=== PATIENT | female | born 1950 | race Caucasian/White ===

== ENCOUNTER → 2018-10-15 | Outpatient (CLI) | payer MEDICARE | LOC: CARD 13:55 | PROVIDERS: ATTEND Nurse Practitioner | DX: I08.0 Rheumatic disorders of both mitral and aortic valves (principal); R60.0 Localized edema | CPT/HCPCS: 93306 ==

== ENCOUNTER 2019-07-28 20:07 | Emergency (ER) | payer MEDICARE ==
[~2019-07-28] VITALS: Ht 157.4 cm; Wt 68.6 kg
--- OUTSIDE RECORDS SUMMARY | 2019-07-28 20:15 | XMS REPORT ---
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 Role Phone TOMMY DENG Unavailable PROBLEMS Type Condition ICD9-CM Code [id number] Code Onset Dates Condition S tatus SNOMED Code Problem Hyperlipidemia E78.5 Active 73161 004 Problem Other chronic pain G89.29 Active 8 [id number] ALLERGIES No Known Allergies ENCOUNTERS Encounter Location Date Diagnosis [address], [place] [address] Dec, Elevated glucose R73.09 ; Right foot jodi n M79.671 and Itching L29.[address], [place] [address] Nov, Other chronic pain G89.29 and Pain in le ft shoulder M25.[address], [place] [address] Sep, Elevated glucose R73.[address], [place] [address] Sep, Peripheral edema R60.9 ; Cardiac murmur R01.1 ; Hyperlipidemia E78.5 and Screening for breast cancer Z12.39 [facility] [address] [place] [address] Aug, Lower back pain M54.5 [facility] [id number] [place] [address] May, Hyperlipidemia E78.5 [facility] [address] [place] [address] May, Acute right-sided low back p ain without sciatica M54.5 and UTI symptoms R39.9 [facility] [address] [facility] [place] [address] 11 May, 2018 Adult general medical exam Z00.00 [place] [address] [place] [id number] [place] [phone] 10 May, 2018 [place] [address] [place] [phone] 9 May, Urinary pain R30.9 and Acute cystitis without hematuria N30.00 [place] [address] [place] [phone] 9 Apr, Urinary pain R30.9 [place] [address] [place] [phone] 9 Apr, Urinary pain R30.9 ; Acute cystitis without hematuria N30.00 and Other eczema L30.8 [place] [address] [place] [phone] 9 Mar, [place] [address] [place] [phone] 9 Feb, IMMUNIZATIONS No Known Immunizations SOCIAL HISTORY Never Assessed REASON FOR VISIT Eye c/o, for the last week eyelids have been crusty and really itchy. Thinks she might also have UTI-mild burning/low back pain. BEAR Landrum PLAN OF CARE Activity Details Follow Up prn Reason: VITAL SIGNS Height 62 in 2018-04-13 Weight 162.4 lbs 2018-04-13 Temperature 99.0 degrees Fahrenheit 2018-04-13 Heart Rate 64 bpm 2018-04-13 Respiratory Rate 16 2018-04-13 BMI 29.7 kg/m2 2018-04-13 Blood pressure systolic 138 mmHg 2018-04-13 Blood pressure diastolic 80 mmHg 2018-04-13 MEDICATIONS Medication Instructions Dosage Frequency Start Date End Date Duration S tatus Elocon 0.1 % Externally Once a day 1 application to affected area 2 4h Apr, 14 days Active Nexium 20 MG Orally Once a day 1 capsule 24h Feb, 30 day(s) Active Claritin Feb, Active Amlodipine Besylate 5 MG TAKE 1 TABLET B Y MOUTH ONCE DAILY LAST REFILL UNTIL SEEN 90 Active Benadryl Feb, Active Metoprolol Succinate ER 25 MG Orally Once a day 1.5 tablets 24h Feb, 30 day(s) Not-Taking HydrOXYzine HCl 25 MG Orally every 8 hrs 1 tablet as needed 8h Feb, 30 day(s) Active Fish Oil 1000 MG Orally Once a day 1 capsule 24h Feb, 30 day(s) Active Clobetasol Propionate 0.05 % Externally Twice a day 1 applic ation to affected area 12h Feb, 10 day(s) Active Metoprolol Tartrate 25 MG Orally Twice a day 1 tablet with food 12h Feb, 30 day(s) Active Cipro 250 MG Orally every 12 hrs 1 tablet 12h Apr, 7 days Active RESULTS No Results PROCEDURES Procedure Date Ordered Result Body Site [facility] VISIT ESTABLISHED PATIENT April 13, 2018 URINALYSIS, AUTO, W/O SCOPE April 13, 2018 [facility] April 13, 2018 INSTRUCTIONS MEDICATIONS ADMINISTERED No Known Medications MEDICAL (GENERAL) HISTORY Type Description Date Medical History hypertension Surgical History Breast Biopsy Hospitalization History Child
--- OUTSIDE RECORDS SUMMARY | 2019-07-28 20:15 | XMS REPORT | Continuity of Care Document ---
Author Organization Unknown Address Unknown Phone Unavailable Allergies There is no data. Medications There is no data. Problems Date Dx Coded Attending Type Code Diagnosis Diagnosed By 11/08/2018 MARCIE QUEZADA SR SOLUTIONS CONSULTANT Ot I08.0 RHEUMATIC DISORDERS OF BOTH MITRAL AND A 11/08/2018 MARCIE QUEZADA SR SOLUTIONS CONSULTANT Ot R60.0 LOCALIZED EDEMA 11/15/2018 MARCIE QUEZADA SR SOLUTIONS CONSULTANT Ot I08.0 RHEUMATIC DISORDERS OF BOTH MITRAL AND A 11/15/2018 ADITYA QUEZADAA Aundrea SR SOLUTIONS CONSULTANT Ot R60.0 LOCALIZED [place] Procedures There is no data. Results Test Result Range CULTURE, URINE - 04/13/18 10:28 CULTURE, URINE, ROUTINE SEE NOTE NRG CULTURE, URINE - 05/11/18 08:05 CULTURE, URINE, ROUTINE SEE NOTE NRG LIPID PANEL - 05/17/18 09:42 CHOLESTEROL, TOTAL 293 mg/dL <200 HDL CHOLESTEROL 60 mg/dL >50 TRIGLYCERIDES 130 mg/dL <150 LDL-CHOLESTEROL 205 mg/dL (calc) NRG CHOL/HDLC RATIO 4.9 (calc) <5.0 NON HDL CHOLESTEROL 233 mg/dL (calc) <13 0 CMP - 09/28/18 07:41 GLUCOSE 106 mg/dL 65-99 UREA NITROGEN (BUN) 11 mg/dL 7-25 CREATININE 0.88 mg/dL 0.50-0.99 eGFR NON-AFR. WELSH 67 mL/min/1.73m2 > OR = 60 eGFR 78 mL/min/1.73m2 > OR = 60 BUN/CREATININE RATIO NOT APPLICABLE (calc) 6-22 SODIUM 136 mmol/L 135-146 POTASSIUM 4.1 mmol/L 3.5-5.3 CHLORIDE 101 mmol/L 98-110 CARBON DIOXIDE 27 mmol/L 20-32 CALCIUM 10.0 mg/dL 8.6-10.4 PROTEIN, TOTAL 7.0 g/dL 6.1-8.1 ALBUMIN 4.4 g/dL 3.6-5.1 GLOBULIN 2.6 g/dL (calc) 1.9-3.7 ALBUMIN/GLOBULIN RATIO 1.7 (calc) 1.0-2. 5 BILIRUBIN, TOTAL 0.7 mg/dL 0.2-1.2 ALKALINE PHOSPHATASE 82 U/L 33-130 AST 19 U/L 10-35 ALT 17 U/L 6-29 BNP - 09/28/18 07:41 B TYPE NATRIURETIC PEPTIDE (BNP) 67 pg/mL <100 CULTURE, URINE - 06/16/19 10:30 CULTURE, URINE, ROUTINE SEE NOTE NRG Encounters ACCT No. Visit Date/Time Discharge Status Pt. Type Provider Facility Loc./Unit Complaint [id number] 07/24/2019 17:00:00 07/24/2019 23:59: 59 CLS Outpatient TOMMY DENG [facility] [id number] 06/16/2019 10:10:00 Document Registration [id number] 09/28/2018 07:00:00 Document Registration [id number] 05/17/2018 10:00:00 Document Registration [id number] 05/10/2018 16:00:00 Document Registration [id number] 04/13/2018 10:20:00 Document Registration [id number] 10/15/2018 13:55:00 019 23:59:59 CLS Outpatient MARCIE QUEZADA [facility] TOMY A
[2019-07-28] MEDS ORDERED: NS IV 1000 ML 1,000 ML IV SCH (20:30)
[2019-07-28] MEDS ORDERED: HYDROcodone/APAP 5 MG/325 MG (LORTAB) TAB PO ONE (20:30)
[2019-07-28] MEDS ORDERED: ONDANSETRON 4 MG/2 ML (SDV) Z0FRAN IVP ONE (20:30)
[2019-07-28] MEDS ORDERED: KETOROLAC 30 MG/ML VIAL IVP ONE (20:30)
[2019-07-28 20:37] LABS: BACTERIA,URINE FEW /HPF; BILIRUBIN,URINE NEGATIVE (NEGATIVE); CLARITY,URINE SLIGHTLY CLOUDY; COLOR,URINE YELLOW; GLUCOSE, URINE (UA) NEGATIVE (NEGATIVE); KETONES,URINE NEGATIVE (NEGATIVE); LEUKOCYTE ESTERASE ,URINE 3+ (NEGATIVE); NITRITE,URINE NEGATIVE (NEGATIVE); PH,URINE 6.5 (5-9); PROTEIN,URINE NEGATIVE (NEGATIVE); WBC,URINE >100 /HPF
[2019-07-28 20:38] LABS: HEMATOCRIT 44 % (35-52); MEAN CORPUSCULAR HEMOGLOBIN 30 PG (25-34); MEAN CORPUSCULAR VOLUME 88 FL (80-99); WHITE BLOOD COUNT 9.1 10^3/uL (4.3-11.0)
[2019-07-28 20:39] LABS: BASOPHILS # (AUTO) 0.1 10^3/uL (0.0-0.1); BASOPHILS % (AUTO) 1 % (0-10); EOSINOPHILS # (AUTO) 0.1 10^3/uL (0.0-0.3); EOSINOPHILS % (AUTO) 1 % (0-10); LYMPHOCYTES # (AUTO) 3.1 X 10^3 (1.0-4.0); LYMPHOCYTES % (AUTO) 34 % (12-44); MEAN CORPUSCULAR HGB CONC 34 G/DL (32-36); MEAN PLATELET VOLUME 9.6 FL (7.4-10.4); MONOCYTES # (AUTO) 0.6 X 10^3 (0.0-1.0); MONOCYTES % (AUTO) 6 % (0-12); NEUTROPHILS # (AUTO) 5.2 X 10^3 (1.8-7.8); NEUTROPHILS % (AUTO) 58 % (42-75); PLATELET COUNT 364 10^3/uL (130-400); RED CELL DISTRIBUTION WIDTH 12.8 % (10.0-14.5)
[2019-07-28 20:55] LABS: ALANINE AMINOTRANSFERASE 18 U/L (0-55); ALBUMIN 4.9 GM/DL (3.2-4.5); ALKALINE PHOSPHATASE 106 U/L (40-136); BILIRUBIN,TOTAL 0.4 MG/DL (0.1-1.0); BUN/CREATININE RATIO 9; CALCIUM 10.1 MG/DL (8.5-10.1); CARBON DIOXIDE 22 MMOL/L (21-32); CHLORIDE 99 MMOL/L (98-107); CREATININE SERUM 1.17 MG/DL (0.60-1.30); GFR ESTIMATED 46; GLUCOSE 110 MG/DL (70-105); LIPASE 28 U/L (8-78); POTASSIUM 3.9 MMOL/L (3.6-5.0); SODIUM 138 MMOL/L (135-145)
[2019-07-28] MEDS ORDERED: cefTRIAXone FOR IV USE 2,000 MG in WATER (STERILE) FOR INJECTION 20 ML IV ONE (21:00)
--- NOTE | 2019-07-28 21:41 | Diagnostic Imaging Report ---
INDICATION: Abdominal pain and cramping since early this morning. Flank pain. UTI in the past month. Constipation. EXAMINATION: CT abdomen and pelvis without contrast, 07/28/2019. All CT scans use one or more of the following dose optimizing techniques: automated exposure control, MA and/or KvP adjustment based on patient size and exam type or iterative reconstruction. COMPARISON: None. FINDINGS: The lung bases are clear. Abdominal viscera limited due to lack of contrast. There is a small hiatal hernia. Liver, spleen, adrenal glands and pancreas are grossly unremarkable. Gallbladder may contain some diffuse hyperdensity, possibly due to sludge or stones. Gallbladder sonogram can better evaluate, as clinically indicated. No surrounding inflammation is appreciated. There is atherosclerotic disease along the aorta and its branches. There is no hydronephrosis or nephrolithiasis. No ureteral stones on either side. There are findings of mild constipation within the right colon. The appendix is unremarkable. There is no inflammatory change about the bowel loops. No free fluid or air in the abdomen or pelvis. Osseous structures demonstrate degenerative findings with no acute abnormality. Mild changes of constipation within the right colon. No inflammatory change is seen. IMPRESSION: 1. Constipation 2. No nephrolithiasis or hydronephrosis. 3. Small hiatal hernia and other incidental findings as above with questionable hyperdensity in the gallbladder. If clinically indicated gallbladder sonography could better characterize. Other findings as above. Dictated by: Dictated on workstation # [id number]
[2019-07-28] MEDS ORDERED: CEPH-507 PO (21:53)
--- NOTE | 2019-07-28 21:54 | ED General ---
General Chief Complaint: Abdominal/GI Problems Stated Complaint: LOWER BACK PAIN/STOMACHE CRAMPS Nursing Triage Note: Patient states that she began having severe abdominal cramping/pain at 0230 this AM. Patient also states that she is having flank pain. Patient has been dealing with a UTI for the past month for which she had been treated for. Patient was supposed to see her doctor tomorrow to schedule a CT scan to check for kidney stones. Patient also states that she has been having issues with constipation. Patient gave herself a suppository today with no relief. Patient is not currently having pain but when her abdomen starts to cramp, she rates her pain at a 10. Nursing Sepsis Screen: No Definite Risk History of Present Illness Date Seen by Provider: Jul 28, 2019 Time Seen by Provider: 21:55 Initial Comments Patient presenting to emergency department for evaluation of multiple complaints including right flank pain abdominal pain chills and sweats. She says she has been dealing with a urinary tract infection for the past month and has been off and on Bactrim during this month time. And is currently on it from what I understand. She says that all day today she has been experiencing diffuse abdominal cramping that can get more intense at times and then some of the time she gets very sharp intense right flank pain. She says several times she had chills and sweats as well. She denied any fevers nausea vomiting diarrhea dysuria hematuria chest pain or shortness of breath. She is not taking anything for pain at this time if she usually takes meloxicam and Tylenol that she takes have her arthritis and has not taken anything for the symptoms. She is in no obvious distress with normal vital signs. Allergies and Home Medications Allergies Coded Allergies: No Known Drug Allergies (Unverified , 07/28/19) Home Medications Cephalexin 500 Mg Capsule, 500 MG PO TID Prescribed by: LAW YUAN on 07/28/19 2904 Patient Home Medication List Home Medication List Reviewed: Yes Review of Systems Review of Systems Constitutional: chills, diaphoresis EENTM: no symptoms reported Respiratory: no symptoms reported Cardiovascular: no symptoms reported Gastrointestinal: abdominal pain Genitourinary: no symptoms reported Musculoskeletal: back pain Skin: no symptoms reported Psychiatric/Neurological: No Symptoms Reported All Other Systems Reviewed Negative Unless Noted: Yes Past Nhbnrkl-Izkmac-Uiafph Hx Patient Social History Alcohol Use: Denies Use Recreational Drug Use: No Smoking Status: Never a Smoker Recent Foreign Travel: No Contact w/Someone Who Travel: No Recent Infectious Disease Expo: No Physical Abuse: No Sexual Abuse: No Mistreated: No Fear: No Past Medical History Surgeries: No Respiratory: No Cardiac: Yes Heart Murmur, Hypertension Neurological: No Genitourinary: No Gastrointestinal: No Musculoskeletal: No Endocrine: No HEENT: No Cancer: No Psychosocial: No Integumentary: No Physical Exam Vital Signs Vital Signs - First Documented 07/28/19 20:14 Temp 37.0 Pulse 118 Resp 20 B/P (MAP) 150/85 (106) Pulse Ox 98 O2 Delivery Room Air Capillary Refill : Less Than 3 Seconds Height, Weight, BMI Height: '" Weight: lbs. oz. kg; 27.00 BMI Method: General Appearance: No Apparent Distress, WD/WN HEENT: PERRL/EOMI Neck: Supple Respiratory: No Respiratory Distress Cardiovascular: Regular Rate, Rhythm Gastrointestinal: Non Tender, Soft Back: No CVA Tenderness Extremity: Normal Capillary Refill Neurologic/Psychiatric: Alert, Oriented x3 Skin: Warm/Dry Progress/Results/Core Measures Suspected Sepsis Recent Fever Within 48 Hours: No Infection Criteria Present: Documented Infection New/Unexplained Altered Menta: No Sepsis Screen: No Definite Risk SIRS Temperature: Pulse: 118 Respiratory Rate: 20 Laboratory Tests 07/28/19 20:28: White Blood Count 9.1 Blood Pressure 150 /85 Mean: 106 Laboratory Tests 07/28/19 20:28: Creatinine 1.17, Platelet Count 364, Total Bilirubin 0.4 Results/Orders Lab Results Laboratory Tests Test 07/28/19 20:28 Range/Units White Blood Count 9.1 4.3-11.0 10^3/uL Red Blood Count 4.95 4.35-5.85 10^6/uL Hemoglobin 15.0 11.5-16.0 G/DL Hematocrit 44 35-52 % Mean Corpuscular Volume 88 80-99 FL Mean Corpuscular Hemoglobin 30 25-34 PG Mean Corpuscular Hemoglobin Concent 34 32-36 G/DL Red Cell Distribution Width 12.8 10.0-14.5 % Platelet Count 364 130-400 10^3/uL Mean Platelet Volume 9.6 7.4-10.4 FL Neutrophils (%) (Auto) 58 42-75 % Lymphocytes (%) (Auto) 34 12-44 % Monocytes (%) (Auto) 6 0-12 % Eosinophils (%) (Auto) 1 0-10 % Basophils (%) (Auto) 1 0-10 % Neutrophils # (Auto) 5.2 1.8-7.8 X 10^3 Lymphocytes # (Auto) 3.1 1.0-4.0 X 10^3 Monocytes # (Auto) 0.6 0.0-1.0 X 10^3 Eosinophils # (Auto) 0.1 0.0-0.3 10^3/uL Basophils # (Auto) 0.1 0.0-0.1 10^3/uL Urine Color YELLOW Urine Clarity SLIGHTLY CLOUDY Urine pH 6.5 5-9 Urine Specific Patterson 1.010 L 1.016-1.022 Urine Protein NEGATIVE NEGATIVE Urine Glucose (UA) NEGATIVE NEGATIVE Urine Ketones NEGATIVE NEGATIVE Urine Nitrite NEGATIVE NEGATIVE Urine Bilirubin NEGATIVE NEGATIVE Urine Urobilinogen 0.2 < = 1.0 MG/DL Urine Leukocyte Esterase 3+ H NEGATIVE Urine RBC (Auto) NEGATIVE NEGATIVE Urine RBC NONE /HPF Urine WBC >100 H /HPF Urine Squamous Epithelial Cells 5-10 /HPF Urine Crystals NONE /LPF Urine Bacteria FEW H /HPF Urine Casts NONE /LPF Urine Mucus NEGATIVE /LPF Urine Culture Indicated YES Sodium Level 138 135-145 MMOL/L Potassium Level 3.9 3.6-5.0 MMOL/L Chloride Level 99 98-107 MMOL/L Carbon Dioxide Level 22 21-32 MMOL/L Anion Gap 17 H 5-14 MMOL/L Blood Urea Nitrogen 10 7-18 MG/DL Creatinine 1.17 0.60-1.30 MG/DL Estimat Glomerular Filtration Rate 46 BUN/Creatinine Ratio 9 Glucose Level 110 H 70-105 MG/DL Calcium Level 10.1 8.5-10.1 MG/DL Corrected Calcium 8.5-10.1 MG/DL Total Bilirubin 0.4 0.1-1.0 MG/DL Aspartate Amino Transf (AST/SGOT) 22 5-34 U/L Alanine Aminotransferase (ALT/SGPT) 18 0-55 U/L Alkaline Phosphatase 106 40-136 U/L Troponin I < 0.30 <0.30 NG/ML Total Protein 8.0 6.4-8.2 GM/DL Albumin 4.9 H 3.2-4.5 GM/DL Lipase 28 8-78 U/L My Orders Orders - LAW YUAN DO Iv/Invasive Line Insertion .IV start (07/28/19 20:25) Cbc With Automated Diff (07/28/19 20:25) Comprehensive Metabolic Panel (07/28/19 20:25) Lipase (07/28/19 20:25) Troponin I Fs (07/28/19 20:25) Ekg Tracing (07/28/19 20:25) Ua Culture If Indicated (07/28/19 20:25) Ns Iv 1000 Ml (Sodium Chloride 0.9%) (07/28/19 20:30) Hydrocodone/Apap 5/325 Tablet (Lortab 5 (07/28/19 20:30) Ondansetron Injection (Zofran Injectio (07/28/19 20:30) Ketorolac Injection (Toradol Injection) (07/28/19 20:30) Urine Culture (07/28/19 20:28) Ceftriaxone For Iv Use (Rocephin For I (07/28/19 21:00) Ct Abdomen/Pelvis Wo (07/28/19 20:59) Medications Given in ED Current Medications Medications Dose Ordered Sig/Pam Route Start Time Stop Time Status Last Admin Dose Admin Acetaminophen/ Hydrocodone Bitart 2 tab ONCE ONCE PO 07/28/19 20:30 07/28/19 20:31 DC 07/28/19 20:47 2 TAB Ceftriaxone Sodium 2000 mg/ Sterile Water 20 ml @ 240 mls/hr ONCE ONCE IV 07/28/19 21:00 07/28/19 21:04 DC 07/28/19 20:51 240 MLS/HR Ketorolac Tromethamine 15 mg ONCE ONCE IVP 07/28/19 20:30 07/28/19 20:31 DC 07/28/19 20:47 15 MG Ondansetron HCl 4 mg ONCE ONCE IVP 07/28/19 20:30 07/28/19 20:31 DC 07/28/19 20:46 4 MG Vital Signs/I&O 07/28/19 20:14 Temp 37.0 Pulse 118 Resp 20 B/P (MAP) 150/85 (106) Pulse Ox 98 O2 Delivery Room Air Capillary Refill : Less Than 3 Seconds Blood Pressure Mean: 106 Progress Note : Progress Note Patient with multiple nonspecific symptoms that were worked up with labs urinalysis and a CT. Her labs came back showing no acute abnormalities but her urinalysis showed that she had 3+ leuk esterase and greater than 100 white blood cells. Her CT showed constipation on the right side as well as gallbladder sludge but no obvious surgical pathology. Patient's pain had resolved in the emergency department after Toradol [place] and she was feeling much better and asking to go home. I suspect that she does have a pyelonephritis that is resistant to Bactrim and gave her a dose of Rocephin here and will start her on Keflex. She has an appointment with her primary care provider tomorrow so I will provide the results of all of her tests today and have her follow up tomorrow. Further testing such as gallbladder ultrasound may end up being necessary but at this time there is no surgical pathology or other acute pathology detected. Patient will be discharged symptom free with normal vital signs and in a stable condition with Keflex. Patient aware and agreeable with plan for discharge and verbalized understanding of the need for short-term follow-up and strict ED return precautions discussed including worsening pain fevers vomiting or other general concerns. Departure Impression Primary Impression: Pyelonephritis Additional Impression: Constipation Disposition: 01 HOME, SELF-CARE Condition: Stable Departure-Patient Inst. Referrals: MARCIE QUEZADA (PCP/Family) Primary Care Physician Patient Instructions: Kidney Infection (DC) Scripts Cephalexin (Keflex) 500 Mg Capsule 500 MG PO TID for 7 Days, CAP Prov: LAW YUAN DO 07/28/19 LAW YUAN DO Jul 28, 2019 21:54
[2019-07-28 21:58] VITALS: BP 142/86
== END 2019-07-28 21:58 | disposition home or self-care (01) ==
LOC: EDUNIT# 20:07 → ER FS 20:10
DX: N12 Tubulo-interstitial nephritis, not specified as acute or chronic (principal); K59.00 Constipation, unspecified; I10 Essential (primary) hypertension
CPT/HCPCS: 36415; 74176; 80053; 81000; 83690; 84484; 85025; 87088; 93005

== ENCOUNTER 2019-08-08 10:22 | Emergency (ER) | payer MEDICARE ==
[~2019-08-08] VITALS: Ht 157.5 cm; Wt 66.7 kg
[~2019-08-08 10:22] MED LIST: CEPH-507 PO
[2019-08-08 10:42] LABS: BILIRUBIN,URINE NEGATIVE (NEGATIVE); CLARITY,URINE CLEAR; COLOR,URINE YELLOW; GLUCOSE, URINE (UA) NEGATIVE (NEGATIVE); KETONES,URINE TRACE (NEGATIVE); LEUKOCYTE ESTERASE ,URINE 3+ (NEGATIVE); NITRITE,URINE NEGATIVE (NEGATIVE); PROTEIN,URINE NEGATIVE (NEGATIVE)
[2019-08-08 10:51] LABS: WBC,URINE 50-100 /HPF
[2019-08-08 10:52] LABS: BACTERIA,URINE FEW /HPF
--- OUTSIDE RECORDS SUMMARY | 2019-08-08 10:53 | XMS REPORT | Continuity of Care Document ---
Author Organization Unknown Address Unknown Phone Unavailable Allergies Active Description Code Type Severity Reaction Onset Reported/Identified Relationship to Patient Clinical Status Yes No Known Drug Allergies [id number] Drug Allergy Unknown N/A 07/28/2019 Medications There is no data. Problems Date Dx Coded Attending Type Code Diagnosis Diagnosed By 11/08/2018 MARCIE QUEZADA DOPSTER Ot I08.0 RHEUMATIC DISORDERS OF BOTH MITRAL AND A 11/08/2018 MARCIE QUEZADA DOPSTER Ot R60.0 LOCALIZED EDEMA 11/15/2018 MARCIE QUEZADA DOPSTER Ot I08.0 RHEUMATIC DISORDERS OF BOTH MITRAL AND A 11/15/2018 MARCIE QUEZADA DOPSTER Ot R60.0 LOCALIZED EDEMA 07/31/2019 LAW YUAN DO Ot I10 ESSENTIAL (PRIMARY) HYPERTENSION 07/31/2019 LAW YUAN DO Ot K59.00 CONSTIPATION, UNSPECIFIED 07/31/2019 LAW YUAN DO Ot N12 TUBULO-INTERSTITIAL NEPHRITIS, NOT SPCF 07/31/2019 LAW YUAN DO Ot R10 .9 UNSPECIFIED ABDOMINAL PAIN Procedures There is no data. Results Test Result Range CULTURE, URINE - 04/13/18 10:28 CULTURE, URINE, ROUTINE SEE NOTE NRG CULTURE, URINE - 05/11/18 08:05 CULTURE, URINE, ROUTINE SEE NOTE NR LIPID PANEL - 05/17/18 09:42 CHOLESTEROL, TOTAL 293 mg/dL <200 HDL CHOLESTEROL 60 mg/dL >50 TRIGLYCERIDES 130 mg/dL <150 LDL-CHOLESTEROL 205 mg/dL (calc) NRG CHOL/HDLC RATIO 4.9 (calc) <5.0 NON HDL CHOLESTEROL 233 mg/dL (calc) <13 0 CMP - 09/28/18 07:41 GLUCOSE 106 mg/dL 65-99 UREA NITROGEN (BUN) 11 mg/dL 7-25 CREATININE 0.88 mg/dL 0.50-0.99 eGFR NON-AFR. [place] 67 mL/min/1.73m2 > OR = 60 eGFR [...] 10:30 CULTURE, URINE, ROUTINE SEE NOTE NRG CULTURE, URINE - 07/24/19 17:43 CULTURE, URINE, ROUTINE NRG Complete urinalysis with reflex to cultu re - 07/28/19 20:28 Urine color determination YELLOW NRG Urine clarity determination SLIGHTLY CLOUDY NRG Urine pH measurement by test strip 6.5 5-9 Specific gravity of urine by test strip 1.010 1.016-1.022 Urine protein assay by test strip, semi-quantitative NEGATIVE NEGATIVE Urine glucose detection by automated test strip NE GATIVE NEGATIVE Erythrocytes detection in urine sediment by light micr oscopy NEGATIVE NEGATIVE Urine ketones detection by automated test strip NE GATIVE NEGATIVE Urine nitrite detection by test strip NEGATIVE NEGATIVE Urine total bilirubin detection by test strip NEGA TIVE NEGATIVE Urine urobilinogen measurement by automated test strip (mass/volume) 0.2 mg/dL < = 1.0 Urine leukocyte esterase detection by dipstick 3+ NEGATIVE Automated urine sediment erythrocyte cou nt by microscopy (number/high power field) NONE NRG Automated urine sediment leukocyte count by microscopy (number/high power field) > [HPF] NRG Bacteria detection in urine sediment by light microsco py FEW NRG Squamous epithelial cells detection in u rine sediment by light microscopy 5-10 NRG Crystals detection in urine sediment by light microsco py NONE NRG Casts detection in urine sediment by light microscopy NONE NRG Mucus detection in urine sediment by light microscopy NEGATIVE NRG Complete urinalysis with reflex to culture YES NRG Complete blood count (CBC) with automate d white blood cell (WBC) differential - 07/28/19 20:28 Blood leukocytes automated count (number/volume) 9.1 10*3/uL 4.3-11.0 Blood erythrocytes automated count (number/volume) 4.95 10*6/uL 4.35-5.85 Venous blood hemoglobin measurement (mass/volume) 15.0 g/dL 11.5-16.0 Blood hematocrit (volume fraction) 44 % 35-52 Automated erythrocyte mean corpuscular volume 88 [ foz_us] 80-99 Automated erythrocyte mean corpuscular h emoglobin (mass per erythrocyte) 30 pg 25-34 Automated erythrocyte mean corpuscular h emoglobin concentration measurement (mass/volume) 34 g/dL 32-36 Automated erythrocyte distribution width ratio 12. 8 % 10.0- 14.5 Automated blood platelet count (count/volume) 364 10*3/uL 130-400 Automated blood platelet mean volume measurement 9.6 [foz_us] 7.4-10.4 Automated blood neutrophils/100 leukocytes 58 % 42-75 Automated blood lymphocytes/100 leukocytes 34 % 12-44 Blood monocytes/100 leukocytes 6 % 0-12 Automated blood eosinophils/100 leukocytes 1 % 0-10 Automated blood basophils/100 leukocytes 1 % 0-10 Blood neutrophils automated count (number/volume) 5.2 10*3 1.8-7.8 Blood lymphocytes automated count (number/volume) 3.1 10*3 1.0-4.0 Blood monocytes automated count (number/volume) 0. 6 10*3 0.0-1.0 Automated eosinophil count 0.1 10*3/uL 0 .0-0.3 Automated blood basophil count (count/volume) 0.1 10*3/uL 0.0-0.1 Comprehensive metabolic panel - 07/28/19 20:28 Serum or plasma sodium measurement (moles/volume) 138 mmol/L 135-145 Serum or plasma potassium measurement (moles/volume) 3.9 mmol/L 3.6-5.0 Serum or plasma chloride measurement (moles/volume) 99 mmol/L 98-107 Carbon dioxide 22 mmol/L 21-32 Serum or plasma anion gap determination (moles/volume) 17 mmol/L 5-14 Serum or plasma urea nitrogen measurement (mass/volume ) 10 mg/dL 7-18 Serum or plasma creatinine measurement (mass/volume) 1.17 mg/dL 0.60-1.30 Serum or plasma urea nitrogen/creatinine mass ratio 9 NRG Serum or plasma creatinine measurement w ith calculation of estimated glomerular filtration rate 46 NRG Serum or plasma glucose measurement (mass/volume) 110 mg/dL 70-105 Serum or plasma calcium measurement (mass/volume) 10.1 mg/dL 8.5-10.1 Serum or plasma total bilirubin measurement (mass/volu me) 0.4 mg/dL 0.1-1.0 Serum or plasma alkaline phosphatase archie surement (enzymatic activity/volume) 106 U/L 40-136 Serum or plasma aspartate aminotransfera se measurement (enzymatic activity/volume) 22 U/L 5-34 Serum or plasma alanine aminotransferase measurement (enzymatic activity/volume) 18 U/L 0-55 Serum or plasma protein measurement (mass/volume) 8.0 g/dL 6.4-8.2 Serum or plasma albumin measurement (mass/volume) 4.9 g/dL 3.2-4.5 TROPONIN I FS - 07/28/19 20:28 TROPONIN I FS < 0.30 <0.30 Lipase - 07/28/19 20:28 Lipase 28 U/L 8-78 Bacterial urine culture - 07/28/19 20:28 Bacterial urine culture 3 OR MORE NRG COLONY COUNT 20,000 CFU/ML NRG SUSCEPTIBILITY GRAM POSITIVES, SUGGESTING PROBABLE NRG MRSA SCREEN COLLECTION CONTAMINATION WITH SKIN DIYA RA NRG RAPID ID NO SUSCEPTIBILITY PERFORMED N RG Encounters ACCT No. Visit Date/Time Discharge Status Pt. Type Provider Facility Loc./Unit Complaint [id number] 07/24/2019 17:00:00 07/24/2019 23:59: 59 CLS Outpatient TOMMY DENG [facility] [id number] 07/24/2019 17:00:00 Document Registration [id number] 06/16/2019 10:10:00 Document Registration [id number] 09/28/2018 07:00:00 Document Registration [id number] 05/17/2018 10:00:00 Document Registration [id number] 05/10/2018 16:00:00 Document Registration [id number] 04/13/2018 10:20:00 Document Registration [id number] 07/28/2019 20:10:00 020 21:58:00 DIS Outpatient LAW YUAN DO [facility] ER FS LOWER BACK PAIN/STOMACH E CRAMPS [id number] 10/15/2018 13:55:00 019 23:59:59 CLS Outpatient MARCIE QUEZADA [facility] CARD PERIPHERAL TOMY A [id number] 08/08/2019 10:25:[address] Emergency JOSHUA WATTERS, CLOVIS Mason [facility] ER BACK PAIN, STOMACH CRAMPING, LIGHTHEADED
[2019-08-08 10:56] LABS: BASOPHILS % (AUTO) 0 % (0-10); EOSINOPHILS % (AUTO) 0 % (0-10); HEMATOCRIT 42 % (35-52); HEMOGLOBIN 14.5 G/DL (11.5-16.0); LYMPHOCYTES % (AUTO) 28 % (12-44); MEAN CORPUSCULAR HEMOGLOBIN 30 PG (25-34); MEAN CORPUSCULAR HGB CONC 34 G/DL (32-36); MEAN CORPUSCULAR VOLUME 87 FL (80-99); MEAN PLATELET VOLUME 9.8 FL (7.4-10.4); MONOCYTES # (AUTO) 0.6 X 10^3 (0.0-1.0); MONOCYTES % (AUTO) 8 % (0-12); NEUTROPHILS # (AUTO) 4.5 X 10^3 (1.8-7.8); NEUTROPHILS % (AUTO) 63 % (42-75); PLATELET COUNT 306 10^3/uL (130-400); RED CELL DISTRIBUTION WIDTH 13.1 % (10.0-14.5); WHITE BLOOD COUNT 7.1 10^3/uL (4.3-11.0)
--- NOTE | 2019-08-08 10:59 | ED Abdominal Pain ---
General Chief Complaint: Abdominal/GI Problems Stated Complaint: BACK PAIN, STOMACH CRAMPING,LIGHTHEADED Source of Information: Patient Exam Limitations: No Limitations History of Present Illness Date Seen by Provider: Aug 08, 2019 Time Seen by Provider: 10:37 Initial Comments Patient presents to ER by private conveyance with chief complaint of waking up this morning having severe abdominal pain in her right lower quadrant abdomen right flank and low right back. She also says she felt like she was going to just pass out. No syncope or falls. No rash or itching. She has no history of kidney stones. No abdominal surgeries or colonoscopies. She says for the past months she's been having some UTI symptoms and her primary care doctor took urine samples and put her on Bactrim a couple times in a row with no success. She went to the ER for [place] and says they did a CT scan to rule out kidney stones. They then put her on Keflex which she said made her feel better until t he last couple days when she went to Dr. Marks her primary care provider and had an ultrasound done at [facility] outpatient which showed gallstones. She has an appointment at [address] Logan, General Surgery. Because she was having some much pain today she called the surgeon's office and was instructed to come to the ER. Patient denies any fever nausea vomiting chills. She has had a feeling of being bloated and gassy. She did not eat anything today. Yesterday evening all she had was a piece of toast for dinner. She's been using Tylenol and a couple days ago stopped using her meloxicam. She has also had constipation for the past week or so and has been using Senokot, Colace, prune juice and enemas without success. Last bowel movement was Monday, 4 days ago. She also has a history of hypertension, passive smoke exposure, hyperlipidemia with intolerance to statins. Echocardiogram [address] Lozano demonstrates EF of 55-65% with grade 2 diastolic dysfunction. Moderate to severe regurgitation and mitral valve. Mild regurgitation and aortic valve. Allergies and Home Medications Allergies Coded Allergies: No Known Drug Allergies (Unverified , 07/28/19) Home Medications Cephalexin 500 Mg Capsule, 500 MG PO TID Prescribed by: LAW YUAN on 07/28/19 5543 Patient Home Medication List Home Medication List Reviewed: Yes Review of Systems Review of Systems Constitutional: No chills, No diaphoresis, No fever; malaise EENTM: No Blurred Vision, No Double Vision Respiratory: Denies Cough, Denies Shortness of Air Cardiovascular: Denies Chest Pain, Denies Edema Gastrointestinal: See HPI, Abdomen Distended, Abdominal Pain; Denies Blood St reaked Stools; Constipated; Denies Diarrhea, Denies Nausea; Poor Fluid Intake Genitourinary: Denies Burning, Denies Discharge Musculoskeletal: No back pain, No joint pain Skin: No pruritus, No rash Psychiatric/Neurological: Denies Anxiety, Denies Depressed All Other Systems Reviewed Negative Unless Noted: Yes Past Jpysnwt-Hkgbed-Lstavl Hx Patient Social History Alcohol Use: Denies Use Recreational Drug Use: No Smoking Status: Never a Smoker Recent Foreign Travel: No Contact w/Someone Who Travel: No Immunizations Up To Date Tetanus Booster (TDap): Unknown PED Vaccines UTD: Yes Past Medical History Surgeries: No Respiratory: No Cardiac: Yes Heart Murmur, Hypertension Neurological: No Genitourinary: Yes UTI-Chronic Gastrointestinal: No Musculoskeletal: No Endocrine: No HEENT: No Cancer: No Psychosocial: No Integumentary: No Physical Exam Vital Signs Vital Signs - First Documented 08/08/19 10:29 Temp 36.8 Pulse 89 Resp 20 B/P (MAP) 179/96 (123) Pulse Ox 100 O2 Delivery Room Air Capillary Refill : Height/Weight/BMI Height: '" Weight: lbs. oz. kg; 27.00 BMI Method: General Appearance: WD/WN, mild distress HEENT: PERRL/EOMI, normal ENT inspection, TMs normal, pharynx normal (mildly dry) Neck: full range of motion, normal inspection Respiratory: lungs clear, normal breath sounds, no respiratory distress, no accessory muscle use Cardiovascular: normal peripheral pulses, regular rate, rhythm, systolic murmur Peripheral Pulses: 2+ Dorsalis Pedis (R), 2+ Left Dors-Pedis (L), 2+ Radial Pulses (R), 2+ Radial Pulses (L) Gastrointestinal: normal bowel sounds, soft, no organomegaly, tenderness (positive Jain sign as well as positive tenderness to right lower quadrant without rebound tenderness.) Extremities: normal range of motion, non-tender, normal capillary refill Back: normal inspection, CVA tenderness (R); No CVA tenderness (L); vertebral tenderness (low lumbar midline. 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, no motor/sensory deficits, alert, normal mood/affect, oriented x 3 Skin: normal color, warm/dry Progress/Results/Core Measures Results/Orders Lab Results Laboratory Tests Test 08/08/19 10:34 08/08/19 10:40 Range/Units Urine Color YELLOW Urine Clarity CLEAR Urine pH 7.0 5-9 Urine Specific [place] <=1.005 1.016-1.022 Urine Protein NEGATIVE NEGATIVE Urine Glucose (UA) NEGATIVE NEGATIVE Urine Ketones TRACE H NEGATIVE Urine Nitrite NEGATIVE NEGATIVE Urine Bilirubin NEGATIVE NEGATIVE Urine Urobilinogen 0.2 < = 1.0 MG/DL Urine Leukocyte Esterase 3+ H NEGATIVE Urine RBC (Auto) NEGATIVE NEGATIVE Urine RBC NONE /HPF Urine WBC 50-100 H /HPF Urine Squamous Epithelial Cells 5-10 /HPF Urine Crystals NONE /LPF Urine Bacteria FEW H /HPF Urine Casts NONE /LPF Urine Mucus NEGATIVE /LPF Urine Culture Indicated YES White Blood Count 7.1 4.3-11.0 10^3/uL Red Blood Count 4.85 4.35-5.85 10^6/uL Hemoglobin 14.5 11.5-16.0 G/DL Hematocrit 42 35-52 % Mean Corpuscular Volume 87 80-99 FL Mean Corpuscular Hemoglobin 30 25-34 PG Mean Corpuscular Hemoglobin Concent 34 32-36 G/DL Red Cell Distribution Width 13.1 10.0-14.5 % Platelet Count 306 130-400 10^3/uL Mean Platelet Volume 9.8 7.4-10.4 FL Neutrophils (%) (Auto) 63 42-75 % Lymphocytes (%) (Auto) 28 12-44 % Monocytes (%) (Auto) 8 0-12 % Eosinophils (%) (Auto) 0 0-10 % Basophils (%) (Auto) 0 0-10 % Neutrophils # (Auto) 4.5 1.8-7.8 X 10^3 Lymphocytes # (Auto) 2.0 1.0-4.0 X 10^3 Monocytes # (Auto) 0.6 0.0-1.0 X 10^3 Eosinophils # (Auto) 0.0 0.0-0.3 10^3/uL Basophils # (Auto) 0.0 0.0-0.1 10^3/uL Sodium Level 141 135-145 MMOL/L Potassium Level 3.6 3.6-5.0 MMOL/L Chloride Level 107 98-107 MMOL/L Carbon Dioxide Level 22 21-32 MMOL/L Anion Gap 12 5-14 MMOL/L Blood Urea Nitrogen 9 7-18 MG/DL Creatinine 0.82 0.60-1.30 MG/DL Estimat Glomerular Filtration Rate > 60 BUN/Creatinine Ratio 11 Glucose Level 105 70-105 MG/DL Calcium Level 9.6 8.5-10.1 MG/DL Corrected Calcium 8.5-10.1 MG/DL Total Bilirubin 0.8 0.1-1.0 MG/DL Aspartate Amino Transf (AST/SGOT) 26 5-34 U/L Alanine Aminotransferase (ALT/SGPT) 24 0-55 U/L Alkaline Phosphatase 84 40-136 U/L C-Reactive Protein High Sensitivity 0.10 0.00-0.50 MG/DL Total Protein 7.5 6.4-8.2 GM/DL Albumin 4.6 H 3.2-4.5 GM/DL Lipase 18 8-78 U/L My Orders Orders - CLOVIS LEWIS Ua Culture If Indicated (08/08/19 10:28) Urine Culture (08/08/19 10:34) Cbc With Automated Diff (08/08/19 10:50) Comprehensive Metabolic Panel (08/08/19 10:50) Hs C Reactive Protein (08/08/19 10:50) Ct Abdomen/Pelvis W (08/08/19 10:50) Ed Iv/Invasive Line Start (08/08/19 10:50) Lactated Ringers (Lr 1000 Ml Iv Solution (08/08/19 11:00) Lipase (08/08/19 10:50) Pantoprazole Injection (Protonix Injecti (08/08/19 11:00) Blood Culture (08/08/19 11:04) Iohexol Injection (Omnipaque 350 Mg/Ml 1 (08/08/19 11:30) Di Iv Start (Assessment) .IV start (08/08/19 11:16) Received Contrast (Hold Metformin- Contr (08/08/19 11:30) Ns (Ivpb) (Sodium Chloride 0.9% Ivpb Bag (08/08/19 11:30) Medications Given in ED Current Medications Medications Dose Ordered Sig/Pam Route Start Time Stop Time Status Last Admin Dose Admin Iohexol 100 ml ONCE ONCE IV 08/08/19 11:30 08/08/19 11:31 DC 08/08/19 11:30 85 ML Pantoprazole 40 mg ONCE ONCE IV 08/08/19 11:00 08/08/19 11:01 DC 08/08/19 11:03 40 MG Sodium Chloride 100 ml ONCE ONCE IV 08/08/19 11:30 08/08/19 11:31 DC 08/08/19 11:30 80 ML Vital Signs/I&O 08/08/19 10:29 Temp 36.8 Pulse 89 Resp 20 B/P (MAP) 179/96 (123) Pulse Ox 100 O2 Delivery Room Air Progress Progress Note #1: Time: 11:01 Progress Note Plan to get her a liter of fluids. CT with IV contrast as she has some right lower quadrant pain as well as pain around the right kidney. Cholecystitis is in the differential. Appendicitis, colitis/bowel obstruction although after a recent CT bowel obstruction is less likely. Patient has declined anything for pain so we will give her some pantoprazole and collect labs including lipase and urine. Progress Note #2: Time: 11:14 Progress Note Patient was seen a week ago for pyelonephritis with too numerous to count white blood cells on urine. Given a dose of Rocephin and today she still has despite taking Keflex significant amount of white blood cells in the urine. Could be a nearby inflammatory process causing the white blood cells show up in the urine or could still be pyelonephritis. Patient does have tenderness to percussion over the right costovertebral angle. Blood cultures of been obtained. Anticipate antibiotics. Aseptic vital signs. Urine culture from 07/28/27 demonstrates contamination and multiple gram-positive isolate. Diagnostic Imaging Diagonstic Imaging: CT (with IV contrast) Plain Films/CT/US/NM/MRI: abdomen, pelvis Comments [facility]. [place], [place] NAME: JAMES WILBURN [facility] REC#: [id number] PT STATUS: REG ER : 1950 PHYSICIAN: CLOVIS LEWIS MD ADMIT DATE: 08/08/19/ER Draft Date of Exam:08/08/19 CT ABDOMEN/PELVIS W PROCEDURE: CT abdomen and pelvis with contrast. TECHNIQUE: Multiple contiguous axial images were obtained through the abdomen and pelvis after administration of intravenous contrast. Auto Exposure Controls were utilized during the CT exam to meet ALARA standards for radiation dose reduction. INDICATION: Back pain and abdominal cramping. Correlation is made with prior CT from 07/28/2019. The lung bases are clear. No discrete liver mass is detected. Gallbladder is unremarkable apart from questionable tiny stones within the dependent portion. There is no biliary ductal dilatation. The pancreas and spleen are unremarkable. No adrenal mass is detected. Kidneys are unremarkable apart from a tiny cortical low density left kidney upper pole, too small to characterize. Aorta is non-aneurysmal. The small and large bowel loops are of normal caliber. There is no obstruction. No free fluid or fluid collection is identified. The bladder and uterus are unremarkable. No abdominal or pelvic lymphadenopathy is detected. IMPRESSION: 1. Possible cholelithiasis. 2. No acute features in the abdomen or pelvis is identified. Dictated on workstation # [id number] Dict: 08/08/19 1143 Trans: 08/08/19 1149 [facility] [id number] Interpreted by: OSWALDO SANCHEZ MD Electronically signed by: Reviewed: Reviewed by Me Consults : Consulting Physician: DELIA LOGAN DO Consults Notes Dr. Logan agrees to come down after his case and examine the patient. 1300: Dr. Logan concluded his examination of the patient and review of labs and imaging. He feels she has a UTI and needs further antibiotics. He also wants to set her up for an outpatient elective cholecystectomy. Departure Impression Primary Impression: Pyelonephritis Disposition: 01 HOME, SELF-CARE Condition: Stable Departure-Patient Inst. Decision time for Depature: 13:00 Referrals: DELIA LOGAN RHONDA L ARNP (PCP) Primary Care Physician Patient Instructions: Kidney Infection (DC) Add. Discharge Instructions: You appear to have an infection of your kidney and so were going to switch on a different class of antibiotics known as Levaquin for 1 week. You received your first dose of Levaquin today and do not need to take the next dose until tomorrow 08/09/19. Drink lots of fluids even if you do not eat much. If you have intractable pain despite Tylenol, heating pads and your meloxicam then you may take one half to one tablet of hydrocodone every 6 hours. Hydrocodone will worsen your constipation. MiraLAX 2-3 times a day 1 capful mixed in 6-8 ounces of fluids. You may continue taking one enema a day and to you have results. Discontinue AZO. Plan to follow up next week with your primary care doctor for reevaluation. Plan to follow up with Dr. Logan, General Surgery in 2-3 weeks to discuss the gallstone seen in your gallbladder and if you want to have them taken out electively. Return to the nearest ER promptly if you begin to experience intractable pain, fever or nausea. Ondansetron one tablet under the tongue every 6 hours as needed if you experience nausea. All discharge instructions reviewed with patient and/or family. Voiced understanding. Scripts Hydrocodone/Acetaminophen (Hydrocodone-Acetamin 5-325 mg) 1 Each Tablet 1 EACH PO Q6H PRN for PAIN-BREAKTHROUGH, #12 TAB 0 Refills Prov: CLOVIS LEWIS 08/08/19 Ondansetron (Ondansetron Odt) 4 Mg Tab.rapdis 4 MG PO Q6H PRN for NAUSEA/VOMITING, #8 TAB 0 Refills Prov: CLOVIS LEWIS 08/08/19 Levofloxacin (Levaquin) 750 Mg Tablet 750 MG PO DAILY for 7 Days, #7 TAB 0 Refills Prov: CLOVIS LEWIS 08/08/19 CLOVIS LEWIS Aug 08, 2019 10:59
[2019-08-08] MEDS ORDERED: LACTATED RINGERS 1,000 ML IV SCH (11:00)
[2019-08-08] MEDS ORDERED: PANTOPRAZOLE 40 MG (PROTONIX) VIAL IV ONE (11:00)
[2019-08-08 11:08] LABS: ALBUMIN 4.6 GM/DL (3.2-4.5); CHLORIDE 107 MMOL/L (98-107); POTASSIUM 3.6 MMOL/L (3.6-5.0); SODIUM 141 MMOL/L (135-145)
[2019-08-08 11:09] LABS: CALCIUM 9.6 MG/DL (8.5-10.1)
[2019-08-08 11:10] LABS: GLUCOSE 105 MG/DL (70-105); TOTAL PROTEIN 7.5 GM/DL (6.4-8.2)
[2019-08-08 11:11] LABS: CARBON DIOXIDE 22 MMOL/L (21-32)
[2019-08-08 11:12] LABS: BILIRUBIN,TOTAL 0.8 MG/DL (0.1-1.0)
[2019-08-08 11:14] LABS: ALKALINE PHOSPHATASE 84 U/L (40-136); CREATININE SERUM 0.82 MG/DL (0.60-1.30); GFR ESTIMATED > 60
[2019-08-08 11:15] LABS: BUN/CREATININE RATIO 11
[2019-08-08 11:17] LABS: ALANINE AMINOTRANSFERASE 24 U/L (0-55); LIPASE 18 U/L (8-78)
[2019-08-08] MEDS ORDERED: HOLD METFORMIN - RECEIVED CONTRAST 20 ML VIAL IV SCH (11:30)
[2019-08-08] MEDS ORDERED: IOHEXOL 350 MG/ML 100 ML (OMNIPAQUE 350) VIAL IV ONE (11:30)
[2019-08-08] MEDS ORDERED: NS 100 ML (IVPB) BAG IV ONE (11:30)
--- NOTE | 2019-08-08 11:49 | Diagnostic Imaging Report ---
PROCEDURE: CT abdomen and pelvis with contrast. TECHNIQUE: Multiple contiguous axial images were obtained through the abdomen and pelvis after administration of intravenous contrast. Auto Exposure Controls were utilized during the CT exam to meet ALARA standards for radiation dose reduction. INDICATION: Back pain and abdominal cramping. Correlation is made with prior CT from 07/28/2019. The lung bases are clear. No discrete liver mass is detected. Gallbladder is unremarkable apart from questionable tiny stones within the dependent portion. There is no biliary ductal dilatation. The pancreas and spleen are unremarkable. No adrenal mass is detected. Kidneys are unremarkable apart from a tiny cortical low density left kidney upper pole, too small to characterize. Aorta is non-aneurysmal. The small and large bowel loops are of normal caliber. There is no obstruction. No free fluid or fluid collection is identified. The bladder and uterus are unremarkable. No abdominal or pelvic lymphadenopathy is detected. IMPRESSION: 1. Possible cholelithiasis. 2. No acute features in the abdomen or pelvis is identified. Dictated by: Dictated on workstation # [id number]
[2019-08-08] MEDS ORDERED: LEVO750T9 PO (13:17)
[2019-08-08] MEDS ORDERED: HYDR-83 PO (13:17)
[2019-08-08] MEDS ORDERED: ONDA4TAB11 PO (13:17)
[2019-08-08] MEDS ORDERED: LEVOFLOXACIN 750 MG TAB (LEVAQUIN) PO ONE (13:30)
[2019-08-08 13:37] VITALS: BP 156/92
--- NOTE | 2019-08-08 15:53 | Consultation - Surgery ---
History of Present Illness History of Present Illness Patient Consulted On(ollie/time) 08/08/19 15:47 Time Seen by Provider: 12:41 History of Present Illness Surgery asked to consult regarding Cholelithias and abdominal pain. HPI per ED: Patient presents to ER by private conveyance with chief complaint of waking up this morning having severe abdominal pain in her right lower quadrant abdomen right flank and low right back. She also says she felt like she was going to just pass out. No syncope or falls. No rash or itching. She has no history of kidney stones. No abdominal surgeries or colonoscopies. She says for the past months she's been having some UTI symptoms and her primary care doctor took urine samples and put her on Bactrim a couple times in a row with no success. She went to the ER for [facility] and says they did a CT scan to rule out kidney stones. They then put her on Keflex which she said made her feel better until the last couple days when she went to Dr. Marks her primary care provider and had an ultrasound done at [facility] outpatient which showed gallstones. She has an appointment at [address] Logan, General Surgery. Because she was having some much pain today she called the surgeon's office and was instructed to come to the ER. Patient denies any fever nausea vomiting chills. She has had a feeling of being bloated and gassy. She did not eat anything today. Yesterday evening all she had was a piece of toast for dinner. She's been using Tylenol and a couple days ago stopped using her meloxicam. She has also had constipation for the past week or so and has been using Senokot, Colace, prune juice and enemas without success. Last bowel movement was Monday, 4 days ago. She also has a history of hypertension, passive smoke exposure, hyperlipidemia with intolerance to statins. When I saw her this afternoon she states the pain is in lower abdomen and not associated with any food. She was tried on "sulfa and keflex for previous UTI's and she has history of chronic back pain. She was actually supposed to see me in the office today regarding gallstones seen on US. Allergies and Home Medications Allergies Coded Allergies: No Known Drug Allergies (Unverified , 07/28/19) Home Medications Cephalexin 500 Mg Capsule, 500 MG PO TID Prescribed by: LAW YUAN on 07/28/192152 Hydrocodone/Acetaminophen 1 Each Tablet, 1 EACH PO Q6H PRN for PAIN-BREAKTHROUGH Prescribed by: CLOVIS LEWIS on 08/08/19 131 Levofloxacin 750 Mg Tablet, 750 MG PO DAILY Prescribed by: CLOVIS LEWIS on 08/08/19 131 Ondansetron 4 Mg Tab.rapdis, 4 MG PO Q6H PRN for NAUSEA/VOMITING Prescribed by: CLOVIS LEWIS on 08/08/19 1317 Patient Home Medication List Home Medication List Reviewed: Yes Past Ntvaglj-Gfgacj-Smbygj Hx Patient Social History Alcohol Use: Denies Use Recreational Drug Use: No Smoking Status: Never a Smoker Recent Foreign Travel: No Contact w/Someone Who Travel: No Recent Infectious Disease Expo: No Immunizations Up To Date Tetanus Booster (TDap): Unknown PED Vaccines UTD: Yes Surgeries History of Surgeries: No Respiratory History of Respiratory Disorde: No Cardiovascular History of Cardiac Disorders: Yes Cardiac Disorders: Heart Murmur, Hypertension Neurological History of Neurological Disord: No Genitourinary History of Genitourinary Disor: Yes Genitourinary Disorders: UTI-Chronic Gastrointestinal History of Gastrointestinal Di: No Musculoskeletal History of Musculoskeletal Dis: No Endocrine History of Endocrine Disorders: No HEENT History of HEENT Disorders: No Cancer History of Cancer: No Psychosocial History of Psychiatric Problem: No Integumentary History of Skin or Integumenta: No Family Medical History Significant Family History: Other Conditions/Hx (Pt denied her parents had any medical problems.) Review of Systems-General Constitutional: No chills, No diaphoresis; malaise EENTM: No blurred vision, No double vision, No mouth pain, No mouth swelling, No epistaxis Respiratory: No cough, No dyspnea on exertion, No short of breath Cardiovascular: No chest pain; Hx of Intervention; No palpitations Gastrointestinal: abdominal pain (RLQ); No hematemesis, No jaundice; loss of appetite; No nausea, No vomiting Genitourinary: dysuria, frequency; No hematuria Musculoskeletal: back pain, joint pain, joint swelling, muscle pain, muscle stiffness Skin: No change in color, No change in hair/nails Psychiatric/Neurological: Denies Anxiety, Denies Depressed, Denies Seizure, Denies Tremors Other pt denies any hx of abnormal bleeding or bruising Physical Exam-General Problems Physical Exam Vital Signs Vital Signs - First Documented 08/08/19 10:29 Temp 36.8 Pulse 89 Resp 20 B/P (MAP) 179/96 (123) Pulse Ox 100 O2 Delivery Room Air Capillary Refill : Less Than 3 Seconds General Appearance: WD/WN, no apparent distress Eyes: Bilateral Eye PERRL, Bilateral Eye EOMI HEENT: pharynx normal; No scleral icterus (R), No scleral icterus (L) Neck: non-tender, full range of motion, supple Respiratory: chest non-tender, lungs clear, normal breath sounds, no respiratory distress, no accessory muscle use Cardiovascular: regular rate, rhythm, systolic murmur (III/) Gastrointestinal: soft, no organomegaly, no pulsatile mass; No distended, No guarding, No rebound Back: CVA tenderness (R), CVA tenderness (L); No muscle spasm Extremities: normal inspection, no pedal edema, no calf tenderness, normal capillary refill 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, no motor/sensory deficits, alert, normal mood/affect, oriented x 3 Skin: normal color, warm/dry Lymphatic: no adenopathy (neck, axilla or groin) Data Review Labs Laboratory Tests 08/08/19 10:34: Urine Color YELLOW, Urine Clarity CLEAR, Urine pH 7.0, Urine Specific [place] <=1.005, Urine Protein NEGATIVE, Urine Glucose (UA) NEGATIVE, Urine Ketones TRACEH, Urine Nitrite NEGATIVE, Urine Bilirubin NEGATIVE, Urine Urobilinogen 0.2, Urine Leukocyte Esterase 3+H, Urine RBC (Auto) NEGATIVE, Urine RBC NONE, Urine WBC 50-100H, Urine Squamous Epithelial Cells 5-10, Urine Crystals NONE, Urine Bacteria FEWH, Urine Casts NONE, Urine Mucus NEGATIVE, Urine Culture Indicated YES 08/08/19 10:40: White Blood Count 7.1, Red Blood Count 4.85, Hemoglobin 14.5, Hematocrit 42, Mean Corpuscular Volume 87, Mean Corpuscular Hemoglobin 30, Mean Corpuscular Hemoglobin Concent 34, Red Cell Distribution Width 13.1, Platelet Count 306, Mean Platelet Volume 9.8, Neutrophils (%) (Auto) 63, Lymphocytes (%) (Auto) 28, Monocytes (%) (Auto) 8, Eosinophils (%) (Auto) 0, Basophils (%) (Auto) 0, Neutrophils # (Auto) 4.5, Lymphocytes # (Auto) 2.0, Monocytes # (Auto) 0.6, Eosinophils # (Auto) 0.0, Basophils # (Auto) 0.0, Sodium Level 141, Potassium Level 3.6, Chloride Level 107, Carbon Dioxide Level 22, Anion Gap 12, Blood Urea Nitrogen 9, Creatinine 0.82, Estimat Glomerular Filtration Rate > 60, BUN/Creatinine Ratio 11, Glucose Level 105, Calcium Level 9.6, Corrected Calcium , Total Bilirubin 0.8, Aspartate Amino Transf (AST/SGOT) 26, Alanine Aminotransferase (ALT/SGPT) 24, Alkaline Phosphatase 84, C-Reactive Protein High Sensitivity 0.10, Total Protein 7.5, Albumin 4.6H, Lipase 18 Radiology Date of Exam:08/08/19 CT ABDOMEN/PELVIS W PROCEDURE: CT abdomen and pelvis with contrast. TECHNIQUE: Multiple contiguous axial images were obtained through the abdomen and pelvis after administration of intravenous contrast. Auto Exposure Controls were utilized during the CT exam to meet ALARA standards for radiation dose reduction. INDICATION: Back pain and abdominal cramping. Correlation is made with prior CT from 07/28/2019. The lung bases are clear. No discrete liver mass is detected. Gallbladder is unremarkable apart from questionable tiny stones within the dependent portion. There is no biliary ductal dilatation. The pancreas and spleen are unremarkable. No adrenal mass is detected. Kidneys are unremarkable apart from a tiny cortical low density left kidney upper pole, too small to characterize. Aorta is non-aneurysmal. The small and large bowel loops are of normal caliber. There is no obstruction. No free fluid or fluid collection is identified. The bladder and uterus are unremarkable. No abdominal or pelvic lymphadenopathy is detected. IMPRESSION: 1. Possible cholelithiasis. 2. No acute features in the abdomen or pelvis is identified. Dictated on workstation # [id number] Dict: 08/08/19 1143 Trans: 08/08/19 1149 [facility] [id number] Interpreted by: OSWALDO SANCHEZ MD Assessment/Plan Assessment/Plan Assessment/Plan Cholelithiasis Constipation UTI Back pain I had a discussion with pt, going over all of the above impressions. I think her cholelithiasis is just an incidental finding; she does not have any signs classic for cholecystitis (no pain with fatty foods, pain in RUQ, etc). Therefore, at this time she does not need a Laparoscopic Cholecystectomy unless some of her symptoms change. She has not had a BM in a few days; even after trying meds to have BM. I recommended she try taking Miralax daily and can increase it to twice a day if needed until she has a BM. I think most of her problems are due to her chronic UTI and I discussed with the ER physician trying her on a second line UTI meds; because first line has failed her a few times now. Her back pain could be due to her arthritis and she probably needs to see her primary and talk about PT and dedicated Xray. She understood all this and was told she can see me in the office if anything changes or she has more questions. DELIA LOGAN DO Aug 08, 2019 15:53
== END 2019-08-08 13:37 | disposition home or self-care (01) ==
LOC: EDUNIT# 10:22 → ER 10:25
DX: K80.20 Calculus of gallbladder without cholecystitis without obstruction (principal); N12 Tubulo-interstitial nephritis, not specified as acute or chronic; K59.00 Constipation, unspecified; I10 Essential (primary) hypertension; E78.5 Hyperlipidemia, unspecified; Z77.22 Contact with and (suspected) exposure to environmental tobacco smoke (acute) (chronic); I08.0 Rheumatic disorders of both mitral and aortic valves; R01.1 Cardiac murmur, unspecified; Z79.899 Other long term (current) drug therapy
CPT/HCPCS: 36415; 74177; 80053; 81000; 83690; 85025; 86141; 87040; 87088; 96361; 96374

== ENCOUNTER 2019-08-22 10:44 | Emergency (ER) | payer MEDICARE ==
[~2019-08-22] VITALS: Ht 157 cm; Wt 65.0 kg
[~2019-08-22 10:44] MED LIST changes: +HYDR-83 PO; +LEVO750T9 PO; +ONDA4TAB11 PO
[2019-08-22] MEDS ORDERED: NS IV 1000 ML 1,000 ML IV SCH (11:00)
[2019-08-22] MEDS ORDERED: ONDANSETRON 4 MG/2 ML (SDV) Z0FRAN IVP ONE (11:00)
--- NOTE | 2019-08-22 11:10 | ED General ---
General Chief Complaint: Trauma-Non Activation Stated Complaint: FALL; HEAD INJ; HYPOTENSION Source of Information: Patient Exam Limitations: No Limitations History of Present Illness Date Seen by Provider: Aug 22, 2019 Time Seen by Provider: 11:00 Initial Comments 68-year-old female presents with complaint of weakness. She states she woke up at 5 o'clock this morning and was too weak to walk to the restroom so she went back to bed and then at 6 o'clock she was able to walk to the restroom and then back to her bedroom where she passed out hitting her head on the floor. She states she was feeling lightheaded and weak. Recently diagnosed with a UTI and started on Macrobid 2 days prior. Patient has some underlying nausea. 2 weeks ago had a cholecystectomy at [facility] and was sent home without complication. Allergies and Home Medications Allergies Coded Allergies: No Known Drug Allergies (Unverified , 07/28/19) Home Medications Cephalexin 500 Mg Capsule, 500 MG PO TID Prescribed by: LAW YUAN on 07/28/192152 Hydrocodone/Acetaminophen 1 Each Tablet, 1 EACH PO Q6H PRN for PAIN-BREAKTHROUGH Prescribed by: CLOVIS LEWIS on 08/08/19 1317 Levofloxacin 750 Mg Tablet, 750 MG PO DAILY Prescribed by: CLOVIS LEWIS on 08/08/19 1317 Ondansetron 4 Mg Tab.rapdis, 4 MG PO Q6H PRN for NAUSEA/VOMITING Prescribed by: CLOVIS LEWIS on 08/08/19 1317 Patient Home Medication List Home Medication List Reviewed: Yes Review of Systems Review of Systems Constitutional: see HPI; No chills, No diaphoresis, No dizziness, No fever; malaise, weakness EENTM: No blurred vision, No eye pain, No nose congestion Respiratory: No cough, No short of breath Cardiovascular: No chest pain, No edema, No palpitations Gastrointestinal: No abdominal pain, No constipation, No diarrhea; nausea; No vomiting Musculoskeletal: No back pain, No joint pain Skin: No change in color, No lesions, No rash Past Dsjlgye-Nludyv-Vjwsjz Hx Past Med/Social Hx: Reviewed Nursing Past Med/Soc Hx Patient Social History Recent Foreign Travel: No Contact w/Someone Who Travel: No Immunizations Up To Date Tetanus Booster (TDap): Unknown PED Vaccines UTD: Yes Past Medical History Surgeries: No Respiratory: No Cardiac: Yes Heart Murmur, Hypertension Neurological: No Genitourinary: Yes UTI-Chronic Gastrointestinal: No Musculoskeletal: No Endocrine: No HEENT: No Cancer: No Psychosocial: No Integumentary: No Family Medical History Other Conditions/Hx Physical Exam Vital Signs Vital Signs - First Documented 08/22/19 11:00 Temp 36.1 Pulse 107 Resp 22 B/P (MAP) 109/70 (83) Pulse Ox 98 O2 Delivery Room Air Capillary Refill : Height, Weight, BMI Height: '" Weight: lbs. oz. kg; 26.00 BMI Method: General Appearance: No Apparent Distress, WD/WN; No Chronically ill, No Mild Distress Eyes: Bilateral Eye Normal Inspection, Bilateral Eye PERRL, Bilateral Eye EOMI HEENT: PERRL/EOMI, Normal ENT Inspection Neck: Non Tender, Supple Respiratory: Chest Non Tender, Lungs Clear Cardiovascular: Regular Rate, Rhythm, No Edema, No JVD, No Murmur Gastrointestinal: No Pulsatile Mass, Non Tender, Soft; No Distended, No Guarding, No Hepatomegaly Back: No CVA Tenderness, No Vertebral Tenderness Extremity: Normal Capillary Refill, Normal Inspection, Non Tender, No Calf Tenderness Neurologic/Psychiatric: Alert, Oriented x3, No Motor/Sensory Deficits, Normal Mood/Affect, cloth opener hand II-XII Norm as Tested; No Aphasia Skin: Normal Color, Warm/Dry; No Rash Focused Exam Lactate Level 08/22/19 11:18: Lactic Acid Level 1.17 Lactic Acid Level Laboratory Tests Test 08/22/19 11:18 Lactic Acid Level 1.17 MMOL/L (0.50-2.00) Progress/Results/Core Measures Suspected Sepsis SIRS Temperature: Pulse: Respiratory Rate: Laboratory Tests 08/22/19 10:53: White Blood Count 12.3H Blood Pressure / Mean: 08/22/19 11:18: Lactic Acid Level 1.17 Laboratory Tests 08/22/19 10:53: Creatinine 1.22, Platelet Count 305, Total Bilirubin 0.6 Results/Orders Lab Results Laboratory Tests Test 08/22/19 10:53 08/22/19 11:18 08/22/19 11:25 08/22/19 12:45 Range/Units White Blood Count 12.3 H 4.3-11.0 10^3/uL Red Blood Count 4.90 4.35-5.85 10^6/uL Hemoglobin 14.9 11.5-16.0 G/DL Hematocrit 43 35-52 % Mean Corpuscular Volume 87 80-99 FL Mean Corpuscular Hemoglobin 30 25-34 PG Mean Corpuscular Hemoglobin Concent 35 32-36 G/DL Red Cell Distribution Width 12.9 10.0-14.5 % Platelet Count 305 130-400 10^3/uL Mean Platelet Volume 10.2 7.4-10.4 FL Neutrophils (%) (Auto) 87 H 42-75 % Lymphocytes (%) (Auto) 6 L 12-44 % Monocytes (%) (Auto) 6 0-12 % Eosinophils (%) (Auto) 1 0-10 % Basophils (%) (Auto) 0 0-10 % Neutrophils # (Auto) 10.7 H 1.8-7.8 X 10^3 Lymphocytes # (Auto) 0.7 L 1.0-4.0 X 10^3 Monocytes # (Auto) 0.7 0.0-1.0 X 10^3 Eosinophils # (Auto) 0.2 0.0-0.3 10^3/uL Basophils # (Auto) 0.0 0.0-0.1 10^3/uL Neutrophils % (Manual) 59 % Lymphocytes % (Manual) 5 % Monocytes % (Manual) 5 % Eosinophils % (Manual) 1 % Basophils % (Manual) 0 % Band Neutrophils 30 % Blood Morphology Comment NORMAL Sodium Level 133 L 135-145 MMOL/L Potassium Level 4.0 3.6-5.0 MMOL/L Chloride Level 98 98-107 MMOL/L Carbon Dioxide Level 18 L 21-32 MMOL/L Anion Gap 17 H 5-14 MMOL/L Blood Urea Nitrogen 13 7-18 MG/DL Creatinine 1.22 0.60-1.30 MG/DL Estimat Glomerular Filtration Rate 44 BUN/Creatinine Ratio 11 Glucose Level 124 H 70-105 MG/DL Calcium Level 9.2 8.5-10.1 MG/DL Corrected Calcium 9.1 8.5-10.1 MG/DL Total Bilirubin 0.6 0.1-1.0 MG/DL Aspartate Amino Transf (AST/SGOT) 53 H 5-34 U/L Alanine Aminotransferase (ALT/SGPT) 38 0-55 U/L Alkaline Phosphatase 124 40-136 U/L Troponin I < 0.30 <0.30 NG/ML Total Protein 6.8 6.4-8.2 GM/DL Albumin 4.1 3.2-4.5 GM/DL Lactic Acid Level 1.17 0.50-2.00 MMOL/L Urine Color DARK YELLOW YELLOW Urine Clarity CLOUDY H CLEAR Urine pH 6.0 6.0 5-9 Urine Specific [place] 1.010 L 1.010 L 1.016-1.022 Urine Protein TRACE H NEGATIVE NEGATIVE Urine Glucose (UA) NEGATIVE NEGATIVE NEGATIVE Urine Ketones 2+ H 2+ H NEGATIVE Urine Nitrite NEGATIVE NEGATIVE NEGATIVE Urine Bilirubin 1+ H NEGATIVE NEGATIVE Urine Urobilinogen 0.2 0.2 < = 1.0 MG/DL Urine Leukocyte Esterase 3+ H 1+ H NEGATIVE Urine RBC (Auto) NEGATIVE NEGATIVE NEGATIVE Urine RBC NONE RARE /HPF Urine WBC >100 H 10-25 H /HPF Urine Squamous Epithelial Cells 25-50 H 2-5 /HPF Urine Crystals NONE PRESENT H /LPF Urine Bacteria MODERATE H FEW H /HPF Urine Casts NONE PRESENT /LPF Urine Mucus NEGATIVE SMALL H /LPF Urine Yeast FEW H /HPF Urine Culture Indicated YES YES Urine Amorphous Sediment FEW BETHANIE URATES H /LPF Urine Hyaline Casts 2-5 H /LPF My Orders Orders - ROVENSTNORMA KUHN DO Ed Iv/Invasive Line Start (08/22/19 10:55) Ekg Tracing (08/22/19 10:55) Cbc With Automated Diff (08/22/19 10:55) Comprehensive Metabolic Panel (08/22/19 10:55) Troponin I Fs (08/22/19 10:55) Urinalysis (08/22/19 10:55) Lactic Acid Analyzer (08/22/19 10:55) Ns Iv 1000 Ml (Sodium Chloride 0.9%) (08/22/19 11:00) Ondansetron Injection (Zofran Injectio (08/22/19 11:00) Manual Differential (08/22/19 10:53) Urinalysis (08/22/19 12:47) Urine Culture (08/22/19 12:45) Medications Given in ED Current Medications Medications Dose Ordered Sig/Pam Route Start Time Stop Time Status Last Admin Dose Admin Ondansetron HCl 4 mg ONCE ONCE IVP 08/22/19 11:00 08/22/19 11:04 DC 7/16/20 11:10 4 MG Vital Signs/I&O 08/22/19 08/22/19 11:00 13:17 Temp 36.1 36.3 Pulse 107 94 Resp 22 18 B/P (MAP) 109/70 (83) 114/60 Pulse Ox 98 98 O2 Delivery Room Air Room Air Capillary Refill : ECG Initial ECG Rate: 100 Initial ECG Rhythm: Normal Sinus Departure Impression Primary Impression: Weakness Additional Impressions: UTI (urinary tract infection) Qualified Codes: N39.0 - Urinary tract infection, site not specified Dehydration Disposition: HOME, SELF-CARE Condition: Improved Departure-Patient Inst. Decision time for Depature: 12:43 Referrals: TOMMY RATLIFF MD (PCP/Family) Primary Care Physician Patient Instructions: Fatigue (DC), Urinary Tract Infection, Adult (DC), Dehydration, Adult (DC) Add. Discharge Instructions: You are advised to drink a Protein shake supplement twice daily for the next couple weeks. An appointment has been made for you to see Dr Chandrakant Ratliff on 26 August @ 1:30 pm. Continue taking your current antibiotic and return to the ER if you are not improving in 2 to 3 days. Take precautions to avoid another fall. All discharge instructions reviewed with patient and/or family. Voiced understanding. NORMA TOMLINSON DO Aug 22, 2019 11:10
--- OUTSIDE RECORDS SUMMARY | 2019-08-22 11:24 | XMS REPORT | Continuity of Care Document ---
Author Organization Unknown Address Unknown Phone Unavailable Allergies Active Description Code Type Severity Reaction Onset Reported/Identified Relationship to Patient Clinical Status Yes No Known Drug Allergies [id number] Drug Allergy Unknown N/A 07/28/2019 Medications There is no data. 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 11/15/2018 MARCIE QUEZADA PROP CUTTER Ot R60.0 LOCALIZED EDEMA 07/28/2019 LAW YUAN DO Ot I10 ESSENTIAL (PRIMARY) HYPERTENSION 07/28/2019 LAW YUAN DO Ot K59.00 CONSTIPATION, UNSPECIFIED 07/28/2019 LAW YUAN DO Ot N12 TUBULO-INTERSTITIAL NEPHRITIS, NOT SPCF 07/28/2019 LAW YUAN DO Ot R10 .9 UNSPECIFIED ABDOMINAL PAIN 07/31/2019 LAW YUAN DO Ot I10 ESSENTIAL (PRIMARY) HYPERTENSION 07/31/2019 LAW YUAN DO Ot K59.00 CONSTIPATION, UNSPECIFIED 07/31/2019 LAW YUAN DO Ot N12 TUBULO-INTERSTITIAL NEPHRITIS, NOT SPCF 07/31/2019 LAW YUAN DO Ot R10 .9 UNSPECIFIED ABDOMINAL PAIN 08/14/2019 JOSHUA WATTERS, CLOVIS Mason Ot E78. 5 HYPERLIPIDEMIA, UNSPECIFIED 08/14/2019 JOSHUA WATTERS, CLOVIS Mason Ot I08. 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 00 CONSTIPATION, UNSPECIFIED 08/14/2019 JOSHUA WATTERS, CLOVIS Mason Ot K80. 20 CALCULUS OF GALLBLADDER W/O CHOLECYSTITI 08/14/2019 CLOVIS LEWIS MD, Ot N12 TUBULO-INTERSTITIAL NEPHRITIS, NOT SPCF 08/14/2019 CLOVIS LEWIS MD, Ot R01. 1 CARDIAC MURMUR, UNSPECIFIED 08/14/2019 CLOVIS LEWIS MD, Ot R10. 31 RIGHT LOWER QUADRANT PAIN 08/14/2019 CLOVIS LEWIS MD, Ot Z77. 22 CNTCT W AND EXPSR TO ENVIRON TOBACCO SMO 08/14/2019 CLOVIS LEWIS MD, Ot Z79.899 OTHER MANAGER DESKTOP (CURRENT) DRUG THERAPY Procedures There is no data. Results Test [...] 7-25 CREATININE 0.88 mg/dL 0.50-0.99 eGFR NON-AFR. UGANDAN 67 mL/min/1.73m2 > OR = 60 eGFR [...] mg/dL 0.1-1.0 Serum or plasma alkaline phosphatase arhcie surement (enzymatic activity/volume) 106 U/L 40-136 Serum [...] RAPID ID NO SUSCEPTIBILITY PERFORMED N RG CULTURE, URINE - 08/07/19 09:03 CULTURE, URINE, ROUTINE SEE NOTE NRG Complete urinalysis with reflex to cultu re - 08/08/19 10:34 Urine color determination YELLOW NRG Urine clarity determination CLEAR NR G Urine pH measurement by test strip 7.0 5-9 Specific gravity of urine by test strip <= 1.016-1.022 Urine protein assay by test strip, semi-quantitative NEGATIVE NEGATIVE Urine glucose detection by automated test strip NE GATIVE NEGATIVE Erythrocytes detection in urine sediment by light micr oscopy NEGATIVE NEGATIVE Urine ketones detection by automated test strip TR HARISH NEGATIVE Urine nitrite detection by test strip NEGATIVE NEGATIVE Urine total bilirubin detection by test strip NEGA TIVE NEGATIVE Urine urobilinogen measurement by automated test strip (mass/volume) 0.2 mg/dL < = 1.0 Urine leukocyte esterase detection by dipstick 3+ NEGATIVE Automated urine sediment erythrocyte cou nt by microscopy (number/high power field) NONE NRG Automated urine sediment leukocyte count by microscopy (number/high power field) [HPF] NRG Bacteria detection in urine sediment [...] urinalysis with reflex to culture YES NRG Bacterial urine culture - 08/08/19 10:34 Bacterial urine culture 3 OR MORE NRG COLONY COUNT 50,000 CFU/ML NRG SUSCEPTIBILITY GRAM POSITIVE ISOLATES; SUGGESTING NRG MRSA SCREEN POSSIBLE COLLECTION CONTAMINATION WITH NRG RAPID ID SKIN TONIA. NO SUSCEPTIBILITY PERFORMED. NRG ID CONFIRMATION SUGGEST RECOLLECTION IF STILL NEED . NRG Complete blood count (CBC) with automate d white blood cell (WBC) differential - 08/08/19 10:40 Blood leukocytes automated count (number/volume) 7.1 10*3/uL 4.3-11.0 Blood erythrocytes automated count (number/volume) 4.85 10*6/uL 4.35-5.85 Venous blood hemoglobin measurement (mass/volume) 14.5 g/dL 11.5-16.0 Blood hematocrit (volume fraction) 42 % 35-52 Automated erythrocyte mean corpuscular volume 87 [ foz_us] 80-99 Automated erythrocyte mean corpuscular h emoglobin (mass per erythrocyte) 30 pg 25-34 Automated erythrocyte mean corpuscular h emoglobin concentration measurement (mass/volume) 34 g/dL 32-36 Automated erythrocyte distribution width ratio 13. 1 % 10.0- 14.5 Automated blood platelet count (count/volume) 306 10*3/uL 130-400 Automated blood platelet mean volume measurement 9.8 [foz_us] 7.4-10.4 Automated blood neutrophils/100 leukocytes 63 % 42-75 Automated blood lymphocytes/100 leukocytes 28 % 12-44 Blood monocytes/100 leukocytes 8 % 0-12 Automated blood eosinophils/100 leukocytes 0 % 0-10 Automated blood basophils/100 leukocytes 0 % 0-10 Blood neutrophils automated count (number/volume) 4.5 10*3 1.8-7.8 Blood lymphocytes automated count (number/volume) 2.0 10*3 1.0-4.0 Blood monocytes automated count (number/volume) 0. 6 10*3 0.0-1.0 Automated eosinophil count 0.0 10*3/uL 0 .0-0.3 Automated blood basophil count (count/volume) 0.0 10*3/uL 0.0-0.1 Comprehensive metabolic panel - 08/08/19 10:40 Serum or plasma sodium measurement (moles/volume) 141 mmol/L 135-145 Serum or plasma potassium measurement (moles/volume) 3.6 mmol/L 3.6-5.0 Serum or plasma chloride measurement (moles/volume) 107 mmol/L 98-107 Carbon dioxide 22 mmol/L 21-32 Serum or plasma anion gap determination (moles/volume) 12 mmol/L 5-14 Serum or plasma urea nitrogen measurement (mass/volume ) 9 mg/dL 7-18 Serum or plasma creatinine measurement (mass/volume) 0.82 mg/dL 0.60-1.30 Serum or plasma urea nitrogen/creatinine mass ratio 11 NRG Serum or plasma creatinine measurement w ith calculation of estimated glomerular filtration rate > NRG Serum or plasma glucose measurement (mass/volume) 105 mg/dL 70-105 Serum or plasma calcium measurement (mass/volume) 9.6 mg/dL 8.5-10.1 Serum or plasma total bilirubin measurement (mass/volu me) 0.8 mg/dL 0.1-1.0 Serum or plasma alkaline phosphatase archie surement (enzymatic activity/volume) 84 U/L 40-136 Serum or plasma aspartate aminotransfera se measurement (enzymatic activity/volume) 26 U/L 5-34 Serum or plasma alanine aminotransferase measurement (enzymatic activity/volume) 24 U/L 0-55 Serum or plasma protein measurement (mass/volume) 7.5 g/dL 6.4-8.2 Serum or plasma albumin measurement (mass/volume) 4.6 g/dL 3.2-4.5 Lipase - 08/08/19 10:40 Lipase 18 U/L 8-78 Serum or plasma C reactive protein measu rement (mass/volume) - 08/08/19 10:40 Serum or plasma C reactive protein measurement (mass/v olume) 0.10 mg/dL 0.00-0.50 Bacterial blood culture - 08/08/19 11:10 Bacterial blood culture NG NRG Bacterial blood culture - 08/08/19 11:23 Bacterial blood culture NG NRG Encounters ACCT No. Visit Date/Time Discharge Status Pt. Type Provider Facility Loc./Unit Complaint [id number] 07/24/2019 17:00:00 07/24/2019 23:59: 59 CLS Outpatient TOMMY DENG [facility] LINDA [id number] 08/07/2019 10:20:00 Document Registration [id number] 07/24/2019 17:00:00 Document Registration [id number] 06/16/2019 10:10:00 Document Registration [id number] 09/28/2018 07:00:00 Document Registration [id number] 05/17/2018 10:00:00 Document Registration [id number] 05/10/2018 16:00:00 Document Registration [id number] 04/13/2018 10:20:00 Document Registration [id number] 08/08/2019 10:25:00 13:37:00 DIS Outpatient JOSHUA WATTERS, CLOVIS Mason [facility] ER BACK PAIN, STOMACH CRAMPING,LIGHTHEADED [id number] 07/28/2019 20:10:00 21:58:00 DIS Emergency LAW YUAN DO [facility] ER FS LOWER BACK PAIN/STOMACH E CRAMPS [id number] 10/15/2018 13:55:00 23:59:59 CLS Outpatient MARCIE QUEZADA [facility] CARD PERIPHERAL TOMY A
[2019-08-22 11:36] LABS: HEMATOCRIT 43 % (35-52); HEMOGLOBIN 14.9 G/DL (11.5-16.0); MEAN CORPUSCULAR HEMOGLOBIN 30 PG (25-34); WHITE BLOOD COUNT 12.3 10^3/uL (4.3-11.0)
[2019-08-22 11:37] LABS: BASOPHILS % (AUTO) 0 % (0-10); EOSINOPHILS # (AUTO) 0.2 10^3/uL (0.0-0.3); EOSINOPHILS % (AUTO) 1 % (0-10); LYMPHOCYTES # (AUTO) 0.7 X 10^3 (1.0-4.0); LYMPHOCYTES % (AUTO) 6 % (12-44); MEAN CORPUSCULAR HGB CONC 35 G/DL (32-36); MEAN CORPUSCULAR VOLUME 87 FL (80-99); MEAN PLATELET VOLUME 10.2 FL (7.4-10.4); MONOCYTES # (AUTO) 0.7 X 10^3 (0.0-1.0); MONOCYTES % (AUTO) 6 % (0-12); NEUTROPHILS # (AUTO) 10.7 X 10^3 (1.8-7.8); NEUTROPHILS % (AUTO) 87 % (42-75); PLATELET COUNT 305 10^3/uL (130-400); RED CELL DISTRIBUTION WIDTH 12.9 % (10.0-14.5)
[2019-08-22 12:05] LABS: ALANINE AMINOTRANSFERASE 38 U/L (0-55); ALKALINE PHOSPHATASE 124 U/L (40-136); BILIRUBIN,TOTAL 0.6 MG/DL (0.1-1.0); BUN/CREATININE RATIO 11; CALCIUM 9.2 MG/DL (8.5-10.1); CARBON DIOXIDE 18 MMOL/L (21-32); CHLORIDE 98 MMOL/L (98-107); CREATININE SERUM 1.22 MG/DL (0.60-1.30); GFR ESTIMATED 44; GLUCOSE 124 MG/DL (70-105); SODIUM 133 MMOL/L (135-145)
[2019-08-22 12:06] LABS: ALBUMIN 4.1 GM/DL (3.2-4.5); BAND NEUTROPHILS 30 %; BASOPHILS % (MANUAL) 0 %; EOSINOPHILS % (MANUAL) 1 %; LYMPHOCYTES % (MANUAL) 5 %; MONOCYTES % (MANUAL) 5 %; NEUTROPHILS % (MANUAL) 59 %; RBC MORPH NORMAL; TOTAL PROTEIN 6.8 GM/DL (6.4-8.2)
[2019-08-22 12:07] LABS: COLOR,URINE DARK YELLOW
[2019-08-22 12:11] LABS: CLARITY,URINE CLOUDY; GLUCOSE, URINE (UA) NEGATIVE (NEGATIVE); KETONES,URINE 2+ (NEGATIVE); NITRITE,URINE NEGATIVE (NEGATIVE); PROTEIN,URINE TRACE (NEGATIVE)
[2019-08-22 12:12] LABS: BACTERIA,URINE MODERATE /HPF; BILIRUBIN,URINE 1+ (NEGATIVE); LEUKOCYTE ESTERASE ,URINE 3+ (NEGATIVE); SQUAMOUS EPITHELIAL CELL,UR 25-50 /HPF; WBC,URINE >100 /HPF; YEAST,URINE FEW /HPF
[2019-08-22 13:03] LABS: COLOR,URINE YELLOW
[2019-08-22 13:04] LABS: BACTERIA,URINE FEW /HPF; BILIRUBIN,URINE NEGATIVE (NEGATIVE); CLARITY,URINE CLEAR; GLUCOSE, URINE (UA) NEGATIVE (NEGATIVE); KETONES,URINE 2+ (NEGATIVE); LEUKOCYTE ESTERASE ,URINE 1+ (NEGATIVE); NITRITE,URINE NEGATIVE (NEGATIVE); PROTEIN,URINE NEGATIVE (NEGATIVE); RBC,URINE RARE /HPF
[2019-08-22 13:05] LABS: AMORPHOUS SEDIMENT,UR FEW AMOR URATES /LPF
[2019-08-22 13:17] VITALS: BP 114/60
== END 2019-08-22 13:18 | disposition home or self-care (01) ==
LOC: EDUNIT# 10:44 → ER FS 10:47
DX: N39.0 Urinary tract infection, site not specified (principal); E86.0 Dehydration
CPT/HCPCS: 36415; 51702; 80053; 81000; 83605; 84484; 85007; 85027; 87077; 87088; 87186; 93005

== ENCOUNTER → 2019-11-26 | Outpatient (CLI) | payer MEDICARE ==
[~2019-11-26] MED LIST changes: +ACHD5005 PO; -HYDR-83 PO
--- NOTE | 2019-11-26 11:22 | Diagnostic Imaging Report ---
INDICATION: Nontraumatic shoulder pain. FINDINGS: There is severe glenohumeral osteoarthritis. No fracture or dislocation. No radiopaque loose body. IMPRESSION: Severe osteoarthritis. No acute appearing abnormality. Dictated by: Dictated on workstation # [id number]
--- NOTE | 2019-11-26 11:25 | Diagnostic Imaging Report ---
Right knee at 10:21. Indication: Knee pain 3 views were obtained. There are no prior studies available for comparison. There is no fracture, dislocation or acute bony abnormality. There is moderately severe degenerative disease involving the medial compartment and the patellofemoral space. The latter, shows only mild degenerative change. The soft tissues are unremarkable. Impression: 1. There is no evidence for an acute bony abnormality.. 2. There is moderately severe degenerative disease of the medial compartment and the patellofemoral space. Dictated by: Dictated on workstation # [id number]
== END ==
LOC: RAD FS 09:59
PROVIDERS: ATTEND Nurse Practitioner
DX: M19.012 Primary osteoarthritis, left shoulder (principal); M17.11 Unilateral primary osteoarthritis, right knee
CPT/HCPCS: 73030; 73562

== ENCOUNTER → 2020-07-02 | Outpatient (CLI) | payer MEDICARE ==
--- NOTE | 2020-07-02 16:23 | Diagnostic Imaging Report ---
INDICATION: Chronic right knee pain. COMPARISON: 11/26/2019 FINDINGS: Multiple radiographic views of the right knee were obtained. There is no acute fracture or dislocation. Osseous structures are intact. Moderate osteoarthritic changes are noted. This consists primarily of medial tibiofemoral joint space narrowing with osteophyte formation and sclerotic remodeling to the articular surfaces. Small suprapatellar joint effusion is also noted. No unexpected radiopaque foreign bodies are seen. IMPRESSION: 1. No acute fracture or dislocation of the right knee. 2. Moderate osteoarthritic changes. Dictated by: Dictated on workstation # [id number]
== END ==
LOC: RAD FS 14:56
PROVIDERS: ATTEND Nurse Practitioner
DX: M17.11 Unilateral primary osteoarthritis, right knee (principal)
CPT/HCPCS: 73562

== ENCOUNTER → 2022-03-22 | Outpatient (CLI) | payer MEDICARE ==
--- NOTE | 2022-03-22 11:30 | Diagnostic Imaging Report ---
INDICATION: Blue toe syndrome. COMPARISON: None available. TECHNIQUE: A Right lower extremity arterial Doppler duplex ultrasound was performed on 03/22/2022. Ankle to brachial indices were not performed secondary to equipment. FINDINGS: Biphasic waveforms with brisk upstrokes are identified throughout the large arterial structures of the right lower extremity including extending into the right posterior tibial artery and dorsalis pedis artery. No monophasic waveforms. IMPRESSION: No evidence of hemodynamically significant stenosis within the large arterial structures of the right lower extremity. Ankle to brachial indices were unable to be obtained secondary to equipment. If the ankle to brachial index is desired, the patient should return to a different facility, particularly in [place], and the ankle to brachial index could be obtained at that time. Dictated by: Dictated on workstation # [id number]
== END ==
LOC: RAD FS 08:42
PROVIDERS: ATTEND Family Medicine
DX: I75.021 Atheroembolism of right lower extremity (principal)
CPT/HCPCS: 93926

== ENCOUNTER → 2022-05-04 | Outpatient (CLI) | payer MEDICARE ==
--- NOTE | 2022-05-04 17:17 | Diagnostic Imaging Report ---
INDICATION: 71-year-old female, hyperlipidemia. Right lower extremity vascular ulcers. Hypertension.. TECHNIQUE: Segmental pulse pressures were performed of the upper and lower extremities. FINDINGS: Resting Doppler Blood Pressures RIGHT Brachial: 146 mmHg Ankle (Posterior Tibial): 176 mm Hg Index: 1.11 Ankle (Dorsalis Pedis): 152 mm Hg Index: 0.96 LEFT Brachial: 158 mmHg Ankle (Posterior Tibial): 184 mm Hg Index: 1.16 Ankle (Dorsalis Pedis): 172 mm Hg Index: 1.09 IMPRESSION: Ankle-brachial indices as above. Ankle-Brachial Index Diagnosis/Interpretation <=0.90 Peripheral Arterial Disease 0.91-0.99 Borderline 1.00-1.40 Normal >1.40 Concern for noncompressible arteries, (assoc with Diabetes Mellitus) Dictated by: Dictated on workstation # [id number]
== END ==
LOC: CARD 10:22
DX: I75.021 Atheroembolism of right lower extremity (principal); L97.519 Non-pressure chronic ulcer of other part of right foot with unspecified severity
CPT/HCPCS: 93922; C8929; 93306